=== PATIENT | male | born 1990 | race Caucasian/White ===

== ENCOUNTER 2023-03-14 12:02 | Emergency (ER) | payer SELFPAY ==
[~2023-03-14] VITALS: Ht 190.5 cm; Wt 117.7 kg
[2023-03-14 12:45] VITALS: BP 142/92; PULSE 100; RESP 18; TEMP 98.4; O2SAT 98
[2023-03-14] MEDS ORDERED: ACETAMINOPHEN 500 MG TAB PO ONE (14:15)
[2023-03-14] MEDS ORDERED: cefTRIAXone SOD 1,000 MG VL IM ONE (14:15)
[2023-03-14] MEDS ORDERED: PROM1SOL4 PO (14:40)
[2023-03-14] MEDS ORDERED: AZIT500T66 PO (14:40)
== END 2023-03-14 15:09 | disposition home or self-care (01) ==
LOC: ER 12:02
DX: U07.1 COVID-19 (principal); J03.90 Acute tonsillitis, unspecified
CPT/HCPCS: 71045; 96372; 99283; J0696